=== PATIENT | female | born 2000 | race Caucasian/White ===

== ENCOUNTER 2025-02-09 14:20 | Emergency (ER) | payer OTHER, SELFPAY ==
[2025-02-09] VITALS (7 sets, daily range): BP systolic 104–127; BP diastolic 66–91; PULSE 80–133; RESP 16–18; TEMP 36.6–37.1; O2SAT 96–98; BMI 27.4
--- NOTE | 2025-02-09 14:32 | ED_ITS ---
HPI - General Adult General Chief complaint: General Medical Stated complaint: fainted Time Seen by Provider: 02/09/25 16:19 Source: patient Mode of arrival: ambulatory Limitations: no limitations History of Present Illness HPI narrative: patient is a 24-year-old female who presents emergency department with her mother for evaluation she is extremely anxious and tearful at the time of my evaluation. She required a lot of verbal reassurance to facilitate her to be able to calm down. She admits that she has been feeling unwell for approximately 8 days including a migraine headache, bilateral ear pain, rhinorrhea, sore throat. States that she has been sleeping most of the week. Having chills and tactile fevers. States over the past 3 days she has also been experiencing nausea and diarrhea, not able to tolerate oral intake due to severe nausea. Has been trying to drink Gatorade but vomiting. She feels very weak and tired. She reports that somewhere during this past week she presented to an urgent care and tested negative for COVID and flu. This morning she took a shower upon getting out she had a near syncopal episode. Mother was recently ill with viral type symptoms as well. Related Data Allergies Allergy/AdvReac Type Severity Reaction Status Date / Time No Known Allergies Allergy Verified 02/09/25 14:36 Review of Systems 2 Review of Systems: Yes all other systems are reviewed and are negative [facility] Past Medical History Attestation statement: The following information was validated with the patient. Source: old records reviewed Social History Social History Advance Directives: No Advance Directives Information Provided: No Physical Exam ED Vital Signs: Vital Signs - 24 hr 02/09/25 14:31 02/09/25 15:55 02/09/25 16:51 Temperature 98.8 F 97.9 F Pulse Rate 133 H 102 H 102 H Respiratory Rate 18 18 Blood Pressure 104/76 107/66 127/83 Pulse Oximetry 96 97 Oxygen Delivery Method Room Air Room Air 02/09/25 16:52 02/09/25 16:53 Temperature Pulse Rate 122 H 126 H Respiratory Rate Blood Pressure 125/91 H 120/83 Pulse Oximetry Oxygen Delivery Method BMI result Body Mass Index 27.4 Appearance: Alert.?Oriented to person, place and time. Extremely anxious Eyes: Pupils equal, round and reactive to light.? ENT: TM normal bilaterally. Pharynx normal.?? Neck: Normal inspection.? Neck supple.??No cervical adenopathy CVS: Heart sounds normal. Normal heart rate and rhythm.? Pulses normal.?? Respiratory: No respiratory distress.? Lung sounds clear to auscultation bilaterally?? Abdomen: Soft and non-tender. Normoactive bowel sounds. Skin: Skin warm and dry.? Normal skin color.? ? Extremities: No lower extremity edema.? Neuro: Moves all extremities spontaneously. Sensation intact bilaterally. No motor deficits. Ambulates with normal steady gait. Course Course Course Narrative: RME, this is a rapid medical exam performed by Noe Toledo please refer to primary provider for complete H&P- 24-year-old female presents for evaluation of a syncopal episode that happened after she got out of the shower this morning. She reports nausea vomiting over the last few days. Her mother recently had a stomach virus. She also endorses a dry cough. Plan for EKG, labs including , troponin. Medical Decision Making Medical Decision Making MDM Narrative: Patient is a 24-year-old female with no reported past medical history presenting for evaluation of viral type symptoms with near syncopal episode today as per HPI. At the time my evaluation she is extremely anxious and tearful, requiring significant verbal reassurance to facilitate her calming down. She arrived tachycardic though I suspect that this may be in some part due to her degree of anxiety but also perhaps due to dehydration. Workup obtained prior to my assumption of care reveals a CBC without leukocytosis anemia or thrombocytopenia. She has no electrolyte derangement. No LILLY. LFTs are unremarkable. HCG is negative. High sensitive troponin is below detectable limits and EKG reveals a sinus tachycardia with ventricular rate of 117, QTC 401, no ST-elevation, no ST-depression. Urinalysis is concentrated consistent with dehydration, findings without evidence of urinary tract infection. She is noted to be influenza B positive, COVID- 19/RSV testing is negative. Suspect influenza as etiology for her symptoms. Patient 2 received 2 L of LR, Zofran 4 mg IV, will assess orthostatic vital signs prior to fluid administration. We will plan to attempt a p.o. trial given her lack of inability to tolerate oral intake before anticipated discharge home. She is in no respiratory distress, no hypoxia, LSCTA. Offered monoclonal antibody Differential Diagnosis Differential Diagnoses: The differential diagnosis associated with the presentation includes ( See narrative above) Admission/Observation Consideration of admission/observation: Escalation of care including admission/observation considered ( see narrative above) Lab Data MDM Lab Attestation statement: I reviewed the patient's lab results. ( see narrative above) 02/09/25 14:54 02/09/25 14:54 Labs: Lab Results 02/09/25 02/09/25 Range/Units 14:53 14:54 WBC 7.3 (4.8-10.8) X10*3/uL RBC 5.31 (4.20-5.50) X10*6/uL Hgb 15.6 (12.0-16.0) g/dl Hct 43.8 (37.0-47.0) % MCV 82.5 (80.0-98.0) fL MCH 29.4 (27.0-33.0) pg MCHC 35.6 H (31.0-35.0) g/dl RDW 12.7 (11.0-16.0) % Plt Count 192 (160-400) X10*3/uL MPV 11.4 (9.4-12.3) fL Immature Gran % (Auto) 0.3 (0.0-0.4) % Neut % (Auto) 75.1 H (45-73) % Lymph % (Auto) 17.4 L (20-40) % Noble % (Auto) 7.1 (2-11) % Eos % (Auto) 0.0 (0-4) % Baso % (Auto) 0.1 (0-2) % Lymph # (Auto) 1.3 (1.2-4.9) X10*3/uL Noble # (Auto) 0.5 (0.1-1.2) X10*3/uL Eos # (Auto) 0.0 (0.0-0.4) X10*3/uL Baso # (Auto) 0.0 (0.0-0.2) X10*3/uL Abs Immat Gran (auto) 0.02 (0.00-0.03) X10*3/uL Absolute Neuts (auto) 5.5 (2.0-8.3) x10*3/uL Absolute Nucleated RBC 0.000 (0.0-0.012) X10*3/uL Nucleated RBC % (auto) 0.0 (0.0-0.2) /100WBC Sodium 139 (135-145) mmol/L Potassium 3.6 (3.3-5.1) mmol/L Chloride 104 (96-108) mmol/L Carbon Dioxide 24 (22-29) mmol/L Anion Gap 15 (12-20) BUN 8 L (9-16) mg/dL Creatinine 0.67 (0.5-1.4) mg/dL Estim Creat Clear Calc 128.4 Estimated GFR > 60 Random Glucose 111 (60-115) mg/dL Calcium 9.9 (8.4-10.2) mg/dL Magnesium 1.9 (1.6-2.6) mg/dL Total Bilirubin 0.4 (0.0-1.0) mg/dL AST 26 (5-31) U/L ALT 21 (0-31) U/L Troponin I High Sens < 2.7 (<3.5-17.0) ng/L Total Protein 8.1 H (6.5-8.0) g/dL Albumin 4.7 (3.5-5.0) g/dL Lipase 25 (8-78) U/L Beta HCG, Quant < 2 mIU/mL Urine Color Dark Yellow Urine Appearance Cloudy Urine pH 6.5 (5.0-9.0) Ur Specific Rosie 1.025 (1.005-1.025) Urine Protein 100 (2+) H (Neg-Trace) mg/dL Urine Glucose (UA) Negative (Negative) mg/dL Urine Ketones 15 (Negative) mg/dL Urine Blood Negative (Negative) Urine Nitrite Negative (Negative) Ur Leukocyte Esterase Trace H (Negative) Urine RBC 0-2 (0-2) /HPF Urine WBC 0-5 (0-5) /HPF Ur Squamous Epith Cells 6-10 (0-2) /HPF Urine Bacteria None Seen (None Seen) Hyaline Casts 3-5 (0-2) /LPF Influenza Type A (PCR) NEGATIVE (Negative) Influenza Type B (PCR) POSITIVE A (Negative) RSV RNA Qual (PCR) NEGATIVE (Negative) SARS-CoV-2 RNA (RT-PCR) NEGATIVE (Negative) Independent Interpretation I performed an independent interpretation of an: EKG ( See narrative above) Independent Historian Clinical information obtained from an independent historian. History obtained from or confirmed by: Parent Prescription Management I considered prescription management with: Pain Medication ( acetaminophen/ibuprofen) Discharge Plan Discharge Clinical Impression: Influenza B Patient Disposition: Home, Self-Care Additional Instructions: Be sure to rest, stay well hydrated drinking plenty of fluids, eat small frequent meals. Tylenol/ibuprofen can be used as needed for fever/pain. Hvkg-alw-tlnorho cold medications may be helpful as well for symptoms. Saline nasal spray, humidifier may be helpful for nasal congestion. [place] has been sent to the pharmacy for nausea / vomiting. You may return to the emergency department with any new or worsening symptoms or concerns. Follow-up with your primary care provider as needed. Should remain out of school/ work until symptoms have resolved and have been without a fever for 24 hours without the use of Tylenol or ibuprofen. Referrals: Physician,Sherri J [Primary Care Provider] - Print Language: Albanian
--- NOTE | 2025-02-09 14:32 | ECG_ITS ---
Test Reason : syncope Blood Pressure : */* mmHG Vent. Rate : 117 BPM Atrial Rate : 117 BPM P-R Int : 128 ms QRS Dur : 88 ms QT Int : 288 ms P-R-T Axes : 74 79 42 degrees QTcB Int : 401 ms Sinus tachycardia Otherwise normal ECG No previous ECGs available Referred By: Terrence Toledo Electronically Signed By: SHIRA SHARP MD
[2025-02-09 14:58] LABS: MANUAL DIFF FLAG NO
[2025-02-09 15:01] LABS: Appearance Urine Cloudy; Color Urine Dark Yellow; Glucose Urine UA Negative (Negative); Leukocyte Esterase Urine Trace (Negative); Nitrite Urine Negative (Negative); PH 6.5 (5.0-9.0); Specific Gravity - Urine 1.025 (1.005-1.025); UMIC TRIGGER UACC YES; Urine Blood Negative (Negative); Urine Ketones 15 mg/dL (Negative); Urine Protein 100 (2+) mg/dL (Neg-Trace)
[2025-02-09 15:01] LABS: Basophils Percent Auto 0.1 % (0-2); Hematocrit 43.8 % (37.0-47.0); Hemoglobin 15.6 g/dl (12.0-16.0); Imm Gran Abs Auto 0.02 X10*3/uL (0.00-0.03); Imm Gran Pct Auto 0.3 % (0.0-0.4); Lymphocytes Absolute Auto 1.3 X10*3/uL (1.2-4.9); Lymphocytes Percent Auto 17.4 % (20-40); Mean Corpuscular HGB Conc 35.6 g/dl (31.0-35.0); Mean Corpuscular Hemoglobin 29.4 pg (27.0-33.0); Mean Corpuscular Volume 82.5 fL (80.0-98.0); Mean Platelet Volume 11.4 fL (9.4-12.3); Monocytes Absolute Auto 0.5 X10*3/uL (0.1-1.2); Monocytes Percent Auto 7.1 % (2-11); Neutrophils Absolute Auto 5.5 x10*3/uL (2.0-8.3); Neutrophils Percent Auto 75.1 % (45-73); Platelet Count 192 X10*3/uL (160-400); Red Blood Count 5.31 X10*6/uL (4.20-5.50); Red Cell Distribution Width 12.7 % (11.0-16.0); White Blood Count 7.3 X10*3/uL (4.8-10.8)
[2025-02-09 15:15] LABS: Bacteria Urine None Seen (None Seen); RBC Urine 0-2 /HPF (0-2); WBC Urine 0-5 /HPF (0-5)
[2025-02-09 15:21] LABS: Alanine Aminotransferase 21 U/L (0-31); Albumin Level 4.7 g/dL (3.5-5.0); Anion Gap 15 (12-20); Aspartate Amino Transferase 26 U/L (5-31); Bilirubin Total 0.4 mg/dL (0.0-1.0); Blood Urea Nitrogen 8 mg/dL (9-16); Calcium 9.9 mg/dL (8.4-10.2); Carbon Dioxide 24 mmol/L (22-29); Chloride 104 mmol/L (96-108); Creatinine Clr Calc Pharmacy 128.4; Estimated Glomerular Filt Rate > 60; Glucose Random 111 mg/dL (60-115); Lipase 25 U/L (8-78); Magnesium 1.9 mg/dL (1.6-2.6); Potassium 3.6 mmol/L (3.3-5.1); Sodium 139 mmol/L (135-145); Total Protein 8.1 g/dL (6.5-8.0)
[2025-02-09 15:25] LABS: Troponin-I High Sensitivity < 2.7 ng/L (<3.5-17.0)
[2025-02-09 15:26] LABS: HCG Quantitative < 2 mIU/mL
[2025-02-09 15:38] LABS: Influenza A PCR NEGATIVE (Negative); Influenza B PCR POSITIVE (Negative); Resp Syncy Virus RNA Qual PCR NEGATIVE (Negative); SARS COV2 PCR INHOUSE NEGATIVE (Negative)
[2025-02-09 16:57] LABS: Alkaline Phosphatase 57 U/L (39-117)
[2025-02-09] MEDS: Lactated Ringers 1,000 ML 999 ML IV ×2 (17:00)
[2025-02-09] MEDS: ondansetron HCL 4 MG/2 ML VIAL IVPUSH (17:04)
== END 2025-02-09 19:00 | disposition home or self-care (01) ==
PROVIDERS: Physician Assistant; Emergency Provider Emergency Medicine
DX: J10.1 Influenza due to other identified influenza virus with other respiratory manifestations (principal); R00.0 Tachycardia, unspecified; R05.9 Cough, unspecified; Z03.818 Encounter for observation for suspected exposure to other biological agents ruled out
CPT/HCPCS: 0241U; 36415; 80053; 81001; 83690; 83735; 84484; 84702; 85025; 93005; 96361; 96374; 99284; J2405; J7120

== ENCOUNTER → 2025-02-09 14:32 | Outpatient (BNV) | payer OTHER, SELFPAY | PROVIDERS: Emergency Provider Emergency Medicine; Visit Provider Internal Medicine Cardiovascular Disease | DX: R00.0 Tachycardia, unspecified (principal) | CPT/HCPCS: 93010 ==